=== PATIENT | female | born 1980 | race Caucasian/White ===

== ENCOUNTER 2017-08-22 23:08 | Emergency (ER) | payer BC ==
[2017-08-22 23:12] VITALS: BP 116/79; PULSE 67; RESP 18; TEMP 98.4; O2SAT 99
--- NOTE | 2017-08-22 23:23 | EDPHY ---
H & P Stated Complaint: dog bite, right thigh Source: Patient Exam Limitations: No limitations - Personal History LMP (Females 10-55): Now Current Tetanus Diphtheria and Acellular Pertussis (TDAP): Yes - Medical/Surgical History Hx Asthma: No Hx Chronic Respiratory Disease: No Hx Diabetes: No Hx Cardiac Disease: No Hx Renal Disease: No Hx Cirrhosis: No Hx Alcoholism: No Hx HIV/AIDS: No Hx Splenectomy or Spleen Trauma: No Other PMH: asthma - Social History Smoking Status: Never smoked Time Seen by Provider: 08/22/17 23:22 HPI/ROS: HPI: This is a 37-year-old female who presents with Chief Complaint: dog bite, right thigh Location: Right thigh Quality: Dog bite Duration: Prior to arrival Signs and Symptoms: No radiation, no weakness, no redness, no warmth, decreased range of motion Timing: Sudden Severity: Moderate Context: Patient was washing her mother's dog which is a terrier and is current on its vaccinations when she was trying to move the dog bed and the dog became upset and bit her in the right thigh. She felt immediate pain and noted some mild bleeding. She applied direct pressure and the bleeding resolved. She is up-to-date on her immunizations. She is ambulatory without deficits and drove herself to the emergency room. Modifying Factors: Direct pressure Comment: ROS: see HPI Constitutional: No fever, no chills, no weight loss Eyes: No blurred vision Respiratory: No shortness of breath, no cough Cardiovascular: No chest pain Gastrointestinal: No nausea, no vomiting, no diarrhea Genitourinary: No dysuria Extremities: No myalgias Neurologic: No weakness, no numbness Skin: No rashes Hematologic: No bruising, no bleeding MEDICAL/SURGICAL/SOCIAL HISTORY: Medical history: Asthma. Does not take any regular medications. Surgical history: Denies Social history: Employed CONSTITUTIONAL: awake and alert, no obvious distress HEENT: Atraumatic and normocephalic. NECK: supple, no midline tenderness, flexion 45 degrees, extension 45 degrees, right and left lateral flexion 45 degrees. No meningismus. Cardiovascular: Normal S1/S2, regular rate, regular rhythm, without murmur rub or gallop. PULMONARY/CHEST: Symmetrical and nontender. no crepitus. Clear to auscultation bilaterally. Good air movement. No accessory muscle usage. ABDOMEN: Soft, nondistended, nontender, no ecchymosis. PELVIC: no pain with rocking; bilateral hips flexion 125 degrees, extension 30 degrees, with no pain internal rotation and no pain external rotation. BACK: No midline tenderness, no paraspinous spasm, deep tendon reflexes 2/2, no pain with straight leg raise EXTREMITIES: 2/2 pulses, right medial mid thigh shows 2 puncture sites 1 mm in size consistent with a dog bite; no surrounding erythema/swelling/bleeding noted. Right hip and right knee have full range of motion. no deformities, no clubbing, no cyanosis or edema. NEUROLOGICAL: no focal neuro deficits. GCS 15. Light touch sensation intact. SKIN: Warm and dry, no erythema. no rash. Good capillary refill. (Elva Joy) Constitutional: Initial Vital Signs Temperature (C) 36.9 C 08/22/17 23:10 Heart Rate 67 08/22/17 23:10 Respiratory Rate 18 08/22/17 23:10 Blood Pressure 116/79 08/22/17 23:10 O2 Sat (%) 99 08/22/17 23:10 O2 Delivery Mode Room Air Allergies/Adverse Reactions: No Known Allergies Allergy (Unverified 08/22/17 23:10) Home Medications: Medication Instructions Recorded Amox Tr/K Clav (Augmentin) 500 mg PO TID #21 tab 09/30/16 [Augmentin 500/125 MG TAB (*)] Hydrocodone/APAP 5/325 [[place] 1 - 2 tab PO Q4PRN PRN #14 tab 09/30/16 5/325 (*)] Amoxicillin/Clavulanate Pot 875 mg PO BID #14 tab 08/22/17 [Augmentin 875 MG TAB (*)] Zov[place] 1-35E Tablet 08/22/17 Medical Decision Making ED Course/Re-evaluation: Tetanus up-to-date. Rabies prophylaxis not indicated. No signs of neurovascular compromise/tenting of skin/compartment syndrome/ extremities and joints examined above and below area of concern and are neurovascularly intact. LET topical gel applied and Wound was copiously irrigated. Patient given Augmentin Clean sterile dressing applied. Wound care verbal and written instructions provided. [facility] notified. (Elva Joy) Other Provider: PHYSICIAN DOCUMENTATION: The patient was evaluated and managed by the Physician [employer]. My co- signature indicates that I have reviewed this chart and I agree with the findings and plan of care as documented. I am the secondary supervising physician. (Jessica Patel) - Data Points Medications Given: Discontinued Medications Amoxicillin/Clavulanate Potassium (Augmentin 875mg) 875 mg PO EDNOW ONE PRN Reason: Protocol Stop: 08/22/17 23:27 Last Admin: 08/22/17 23:36 Dose: 875 mg Tetracaine/Epinephrine/Lidocaine (Let Gel Topical) 1 ea TP EDNOW ONE Stop: 08/22/17 23:26 Last Admin: 08/22/17 23:28 Dose: 1 ea Departure - Departure Disposition: Home, Routine, Self-Care Clinical Impression: Dog bite of extremity Condition: Good Instructions: Animal Bite (ED) Additional Instructions: Please wash the area with mild soap and water and apply topical antibiotic ointment daily until healed. Take all of the Augmentin until complete. Please monitor for signs and symptoms of infection. Referrals: [facility],. [Clinic] - As per Instructions Prescriptions: Amoxicillin/Clavulanate Pot [Augmentin 875 MG TAB (*)] 875 mg PO BID #14 tab
[2017-08-22] MEDS ORDERED: LET GEL TOPICAL 1 EA SYR TP ONE ×2 (23:25→23:26)
[2017-08-22] MEDS ORDERED: AMOXICILLIN/CLAVULANATE POT 875/125 MG TAB PO ONE (23:26)
== END 2017-08-23 00:03 | disposition home or self-care (01) ==
DX: S71.151A Open bite, right thigh, initial encounter (principal); J45.909 Unspecified asthma, uncomplicated; W54.0XXA Bitten by dog, initial encounter; Y99.8 Other external cause status; Y93.89 Activity, other specified